=== PATIENT | female | born 1995 | race Caucasian/White ===

== ENCOUNTER 2016-11-02 14:01 | Emergency (ER) | payer OTHER ==
[2016-11-02 14:04] VITALS: BP 137/87
== END 2016-11-02 15:36 | disposition short-term general hospital (02) ==
LOC: ED 14:01
DX: O26.893 Other specified pregnancy related conditions, third trimester (principal); R10.9 Unspecified abdominal pain; Z3A.37 37 weeks gestation of pregnancy